=== PATIENT | male | born 1995 | race Caucasian/White ===

== ENCOUNTER 2016-02-29 00:29 | Emergency (ER) | payer OTHER ==
[2016-02-29 00:40] VITALS: BP 107/64; PULSE 82; TEMP 98.6; BMI 21.9
[2016-02-29] MEDS ORDERED: KETOROLAC TROMETHAMINE 30 MG/1 ML VIAL ONE (00:44)
[2016-02-29] MEDS ORDERED: KETOROLAC TROMETHAMINE 30 MG/1 ML VIAL IM ONE (00:47)
--- NOTE | 2016-02-29 00:54 | PDOC ---
History of Present Illness - General Chief Complaint: Pain Stated Complaint: LT TESTICULAR PAIN Time Seen by Provider: 02/29/16 00:31 History Source: Patient Exam Limitations: No Limitations - History of Present Illness Initial Comments: 02/29/16 00:48 20 y m no pmhx sudden onset lt testicular pain, nausea, and diaphoresis last might at 10. no fever chills, abd pain, or back pain. not sexually active. last masturbation 2 days ago. denies recent trauma. c/o "dull/heaviness" lt testis Past History - Past Medical History Allergies/Adverse Reactions: Allergies Allergy/AdvReac Type Severity Reaction Status Date / Time No Known Allergies Allergy Verified 02/29/16 00:10 Home Medications: Ambulatory Orders NK [No Known Home Medication] 02/09/16 Other medical history: DENIES - Immunization History Immunization Up to Date: Yes - Psycho/Social/Smoking Cessation Hx Anxiety: No Suicidal Ideation: No Smoking Status: No Smoking History: Current every day smoker Have you smoked in the past 12 months: Yes Number of Cigarettes Smoked Daily: 0 Information on smoking cessation initiated: Yes 'Breaking Loose' booklet given: 02/29/16 Hx Alcohol Use: No Drug/Substance Use Hx: Yes Substance Use Type: Marijuana Review of Systems - Review of Systems Able to Perform ROS?: Yes Is the patient limited Thai proficient: No Constitutional: No: Symptoms Reported HEENTM: No: Symptoms Reported Respiratory: No: Symptoms reported : Yes: Symptoms Reported, Flank Pain (a week ago), Testicular Pain Musculoskeletal: No: Symptoms Reported All Other Systems: Reviewed and Negative *Physical Exam - Vital Signs Last Vital Signs Temp Pulse Resp BP Pulse Ox 98.6 F 82 18 107/64 98 02/29/16 00:36 02/29/16 00:36 02/29/16 00:36 02/29/16 00:36 02/29/16 00:36 - Physical Exam General Appearance: Yes: Nourished, Appropriately Dressed. No: Apparent Distress Respiratory/Chest: positive: Lungs Clear. negative: Respiratory Distress Cardiovascular: positive: Regular Rhythm, Regular Rate Gastrointestinal/Abdominal: positive: Normal Bowel Sounds, Soft. negative: Tender, Hernia Male Genitalia: positive: normal genitalia. negative: discharge, testicular tenderness, testicular mass, epididymus tender, inguinal hernia, CVAT Integumentary: positive: Normal Color Neurologic: positive: Fully Oriented, Alert, Normal Mood/Affect, Normal Response , Motor Strength 06/21 ED Treatment Course - Medications Given in the ED: ED Medications Discontinued Medications Generic Name Dose Route Start Last Admin Trade Name Darnell PRN Reason Stop Dose Admin Ketorolac Tromethamine 30 mg 02/29/16 00:47 02/29/16 00:48 Toradol Injection - IM 02/29/16 00:48 30 mg NOW ONE Administration Progress Note - Progress Note Progress Note: likely urolithiasis. ddx would inclue hydrocele but no susp for torsion or infectious process *DC/Admit/Observation/Transfer Diagnosis at time of Disposition: Testicular pain, left, Renal colic on left side - Discharge Dispostion Disposition: HOME Condition at time of disposition: Stable - Referrals Referrals: Jerald Lama [Primary Care Provider] - Call tomorrow - Patient Instructions Additional Instructions: PLENTY OF FLUIDS MOTRIN 800 MG 3 TIMES A DAY FOR 3 DAYS RETURN IF FEVER, VOMITING, SEVERE PAIN SEE YOUR UROLOGIST THIS WEEK STRAIN YOUR URINE TO CATCH THE STONE AND IF YOU DO BRING IT TO YOUR DOCTOR
[2016-02-29 01:10] LABS: URINE APPEARANCE CLEAR; URINE BILIRUBIN NEGATIVE (NEGATIVE); URINE BLOOD NEGATIVE (NEGATIVE); URINE COLOR LT. YELLOW; URINE GLUCOSE (UA) NEGATIVE (NEGATIVE); URINE KETONE NEGATIVE (NEGATIVE); URINE LEUK ESTERASE NEGATIVE (NEGATIVE); URINE NITRITE NEGATIVE (NEGATIVE); URINE PROTEIN NEGATIVE (NEGATIVE); URINE UROBILINOGEN 0.2 E.U/dl E.U./dl (0.2-1.0)
== END 2016-02-29 00:58 | disposition home or self-care (01) ==
LOC: FER 00:29
DX: N45.1 Epididymitis (principal)
CPT/HCPCS: 81003; 99282-25

== ENCOUNTER 2016-03-01 20:17 | Emergency (ER) | payer OTHER ==
[2016-03-01 20:23] VITALS: BP 141/64; PULSE 94; TEMP 98.4; BMI 21.9
--- NOTE | 2016-03-01 20:58 | PDOC ---
History of Present Illness - General History Source: Patient, Parent(s) Exam Limitations: No Limitations - History of Present Illness Initial Comments: 03/01/16 22:27 The patient is a 20-year-old male with no significant past medical history, who presents to the emergency department complaining of left testicular and LLQ abdominal pain for the past 3 days. Prior to the onset of his symptoms the patient reports experiencing bilateral flank pain for about a week. Before the onset of his testicular pain 3 days ago, the patient states he was aiding his parents bring groceries into their home and moving light items in the garage. When the pain began, he states he had difficulty walking secondary to pain. As per patients parents, the patient presented to the ED yesterday for symptoms of testicular pain, nausea, vomiting, and diaphoresis. He reports that he was given Toradol with mild relief. The patient states his pain continues today, and describes that it feels as if someone were pulling on his testicles. The patient denies any family history of kidney stones or hernias. He denies associated dysuria, frequency, urgency, or hematuria. He denies nausea, vomiting , diarrhea, or constipation. The patient reports that he is not sexually active. Allergies: None reported. Past Surgical History: None reported. Social History: Current everyday smoker and recreational marijuana consumer. Denies ETOH use. PCP: Dr. Jerald Lama <Ayaan Denise - Last Filed: 03/02/16 00:17> <Josefa Capellan - Last Filed: 03/02/16 21:07> - General Chief Complaint: Pain Stated Complaint: LOWER BACK PAIN/TESTICLES PAIN Time Seen by Provider: 03/01/16 20:55 Past History <Ayaan Denise - Last Filed: 03/02/16 00:17> - Immunization History Immunization Up to Date: Yes - Psycho/Social/Smoking Cessation Hx Anxiety: No Suicidal Ideation: No Smoking Status: No Smoking History: Never smoked Have you smoked in the past 12 months: Yes Number of Cigarettes Smoked Daily: 0 Information on smoking cessation initiated: No 'Breaking Loose' booklet given: 02/29/16 Hx Alcohol Use: No Drug/Substance Use Hx: Yes (marijuana) Substance Use Type: Marijuana <Josefa Capellan - Last Filed: 03/02/16 21:07> - Past Medical History Allergies/Adverse Reactions: Allergies Allergy/AdvReac Type Severity Reaction Status Date / Time No Known Allergies Allergy Verified 03/01/16 20:18 Home Medications: Ambulatory Orders NK [No Known Home Medication] 02/09/16 Review of Systems - Review of Systems Able to Perform ROS?: Yes Comments:: 03/01/16 22:27 GENERAL/CONSTITUTIONAL: No fever or chills. No weakness. HEAD, EYES, EARS, NOSE AND THROAT: No change in vision. No ear pain or discharge. No sore throat. CARDIOVASCULAR: No chest pain or shortness of breath. RESPIRATORY: No cough, wheezing, or hemoptysis. GASTROINTESTINAL: +LLQ abdominal pain. No nausea, vomiting, diarrhea or constipation. GENITOURINARY: +Left testicular pain. No dysuria, frequency, or change in urination. MUSCULOSKELETAL: No joint or muscle swelling or pain. No neck or back pain. SKIN: No rash NEUROLOGIC: No headache, vertigo, loss of consciousness, or change in strength/ sensation. ENDOCRINE: No increased thirst. No abnormal weight change. HEMATOLOGIC/LYMPHATIC: No anemia, easy bleeding, or history of blood clots. ALLERGIC/IMMUNOLOGIC: No hives or skin allergy. <HowieGiomilsy - Last Filed: 03/02/16 00:17> *Physical Exam - Vital Signs Last Vital Signs Temp Pulse Resp BP Pulse Ox 98.4 F 94 H 16 141/64 97 03/01/16 20:20 03/01/16 20:20 03/01/16 20:20 03/01/16 20:20 03/01/16 20:20 - Physical Exam Comments: 03/01/16 22:27 GENERAL: Awake, alert, and fully oriented, in no acute distress. HEAD: No signs of trauma. EYES: PERRLA, EOMI, sclera anicteric, conjunctiva clear. ENT: Auricles normal inspection, hearing grossly normal, nares patent, oropharynx clear without exudates. Moist mucosa. NECK: Normal ROM, supple, no lymphadenopathy, JVD, or masses. LUNGS: Breath sounds equal, clear to auscultation bilaterally. No wheezes, and no crackles. HEART: Regular rate and rhythm, normal S1 and S2, no murmurs, rubs or gallops. ABDOMEN: Soft, nontender, normoactive bowel sounds. No guarding, no rebound to deep palpation. No masses. GENITOURINARY: No inguinal hernia. No testicular swelling. EXTREMITIES: Normal range of motion, no edema. No clubbing or cyanosis. No cords, erythema, or tenderness. NEUROLOGICAL: Cranial nerves II through XII grossly intact. Normal speech, normal gait. <Ayaan Denise - Last Filed: 03/02/16 00:17> - Vital Signs Last Vital Signs Temp Pulse Resp BP Pulse Ox 98.4 F 94 H 16 141/64 97 03/01/16 20:20 03/01/16 20:20 03/01/16 20:20 03/01/16 20:20 03/01/16 20:20 <Josefa Capellan - Last Filed: 03/02/16 21:07> ED Treatment Course - LABORATORY CBC & Chemistry Diagram: 03/01/16 21:23 03/01/16 21:23 - ADDITIONAL ORDERS Additional order review: Laboratory Results 03/01/16 21:23 Sodium 140 Potassium 3.6 Chloride 104 Carbon Dioxide 30 Anion Gap 6 L BUN 14 Creatinine 1.0 D Creat Clearance w eGFR > 60 Random Glucose 96 Calcium 8.9 Total Bilirubin 0.8 AST 11 L D ALT 19 D Alkaline Phosphatase 80 Total Protein 7.0 Albumin 4.3 03/01/16 21:23 RBC 5.04 MCV 88.3 MCHC 32.5 RDW 12.7 MPV 8.6 D Neutrophils % 74.0 D Lymphocytes % 21.2 D Monocytes % 3.7 L Eosinophils % 0.6 Basophils % 0.5 - RADIOLOGY Radiograph Interpretation: 03/02/16 00:17 EXAM: Scrotum US INTERPRETED BY: Dr. Kaplan REVIEWED BY: Dr. Capellan IMPRESSION: There is no evidence of testicular torsion, bilaterally. Slightly prominent vascular flow in the left epididymal tail relative to the right that may be on the basis of epididymitis in view of the clinical history of left testicular pain. <Ayaan Denise - Last Filed: 03/02/16 00:17> - LABORATORY CBC & Chemistry Diagram: 03/01/16 21:23 03/01/16 21:23 - RADIOLOGY Radiology Studies Ordered: Category Date Time Status SCROTUM AND CONTENTS US [US] Stat Ultrasound 03/01/16 20:57 Ordered <Josefa Capellan - Last Filed: 03/02/16 21:07> Medical Decision Making - Medical Decision Making 03/02/16 02:47 Pt comes with left testicular pain. States that he feels like it is "dragging" or "heavy" He states that he was moving stuff in the garage and he was organizing and clearing things out. ? hernia. Pt states that he is a virgin, not sexually active. No fevers and no chills. Pain is not so severe that he is doubled over in pain. He has no abdominal pain. He has good appetite and he has no dysuria, and no hematuria. Urine is pale yellow and clear in the ER. Pt has a normal exam. 03/02/16 21:03 scrotal sono shows epididymitis. Pt will be treated with antibiotics and NSAIDS and he will be referred to his PMD. On exam he has no hernia in the ingunal canals bilaterally and he has no abdominal pain. Pt is stable for d/c home <Josefa Capellan - Last Filed: 03/02/16 21:07> *DC/Admit/Observation/Transfer - Attestations Scribe Attestion: 03/01/16 22:28 Documentation prepared by Ayaan Denise, acting as electromedical equipment technician for Josefa Capellan MD. <Ayaan Denise - Last Filed: 03/02/16 00:17> - Discharge Dispostion Admit: No <Josefa Capellan - Last Filed: 03/02/16 21:07> Diagnosis at time of Disposition: Epididymitis, left - Discharge Dispostion Disposition: HOME Condition at time of disposition: Stable - Referrals Referrals: Jerald Lama [Primary Care Provider] - - Patient Instructions Printed Discharge Instructions: DI for Epididymitis
[2016-03-01] MEDS ORDERED: KETOROLAC TROMETHAMINE 30 MG/1 ML VIAL IVPUSH ONE (21:09)
[2016-03-01 22:01] LABS: BASOPHIL 0.5 % (0-2.0); EOSINOPHIL 0.6 % (0-4.5); MCH 28.7 pg (25.7-33.7); MCHC 32.5 g/dl (32.0-35.9); MEAN CELL VOLUME 88.3 fl (80-96); MEAN PLT VOLUME 8.6 fl (7.5-11.1); PLATELET COUNT 186 K/MM3 (134-434); RDW 12.7 % (11.9-15.9); WHITE BLOOD COUNT 9.2 K/mm3 (4.0-10.0)
[2016-03-01 22:22] LABS: ALBUMIN 4.3 g/dl (3.4-5.0); ALK PHOS 80 U/L (45-117); ANION GAP 6 (8-16); BILIRUBIN,TOTAL 0.8 mg/dL (0.2-1.0); CALCIUM 8.9 mg/dL (8.5-10.1); CO2 30 mmol/L (21-32); GLUCOSE,RANDOM 96 mg/dL (74-106); SGOT/AST 11 U/L (15-37); SGPT/ALT 19 U/L (12-78)
[2016-03-01 22:33] LABS: INR 1.16 (0.82-1.09); PROTHROMBIN TIME (PATIENT) 12.8 SEC (9.98-11.88)
[2016-03-01] MEDS ORDERED: AZITHROMYCIN 1 GM PACKET PO ONE (23:01)
[2016-03-01] MEDS ORDERED: IBUPROFEN 600 MG TABLET (FP) PO ONE ×2 (23:03→23:15)
[2016-03-01] MEDS ORDERED: KETOROLAC TROMETHAMINE 30 MG/1 ML VIAL ONE (23:15)
[2016-03-01] MEDS ORDERED: AZITHROMYCIN 250 MG TABLET (FP) ONE (23:15)
[2016-03-01] MEDS ORDERED: cefTRIAXone SODIUM 1 GM VIAL ONE (23:15)
== END 2016-03-02 00:30 | disposition home or self-care (01) ==
LOC: JER 20:17
DX: N45.1 Epididymitis (principal)
CPT/HCPCS: 36415; 76870-TC; 80053; 85025; 85610; 86850; 86900; 86901; 99281-25

== ENCOUNTER 2020-06-26 12:08 | Emergency (ER) | payer SELFPAY ==
[2020-06-26 12:20] VITALS: BP 122/80; PULSE 76; TEMP 98.5; BMI 24.4
== END 2020-06-26 13:25 | disposition home or self-care (01) ==
LOC: JERFT 12:08
DX: L03.011 Cellulitis of right finger (principal)
CPT/HCPCS: 99283-25

== ENCOUNTER 2023-06-18 08:04 | Emergency (ER) | payer SELFPAY ==
[2023-06-18 08:19] VITALS: BP 122/81; PULSE 97; RESP 20; TEMP 99.1; BMI 29.7
== END 2023-06-18 10:09 | disposition home or self-care (01) ==
LOC: JERFT 08:04
PROC: 0X9K0ZZ Drainage of Left Hand, Open Approach (ICD-10-PCS; principal; 2023-06-18)
DX: L03.012 Cellulitis of left finger (principal)
CPT/HCPCS: 99283-25